=== PATIENT | female | born 2005 | race Caucasian/White ===

== ENCOUNTER 2024-03-08 08:58 | Emergency (ER) | payer BC, SELFPAY ==
[2024-03-08 08:58] VITALS: BP 116/89; PULSE 122; RESP 17; TEMP 36.2; O2SAT 100; BMI 23.8
[2024-03-08 09:02] VITALS: BP 116/89; PULSE 122; RESP 17; TEMP 36.2; O2SAT 100
--- NOTE | 2024-03-08 09:11 | EDS_ITS ---
HPI HPI - GI History of Present Illness Chief Complaint: Nausea/Vomiting Informant: patient Narrative Narrative: 18-year-old female type I diabetic presents with vomiting, she was around some children who were vomiting and not feeling well recently, states she could have a stomach flu because of that or she could be in DKA. She has been vomiting for 3 to 4 hours now, started at 5 AM. She states she took her insulin pump site off last night before going to bed but forgot to put a new 1 on accidentally. She states that she was going to when she woke up vomiting at 5 AM but was feeling too poorly so then put the new one on around 7 when she woke up later but she has been vomiting uncontrollably since. She denies dyspnea. She states after the vomiting started she had some feeling like she has cramping or twisting in her abdomen but no other severe pains except from discomfort in her low back nonlateralizing. She denies any urinary symptoms, fevers or chills, or diarrhea. [facility] Medical History Type 1 diabetes Home Medications ?Medication ?Instructions ?Recorded ?Last Taken ?Type glucagon 3 mg/actuation nasal mg intranasal 03/08/24 Unknown History spray (Baqsimi) insulin aspart U-100 100 unit/mL 200 unit subcut Q3D 03/08/24 Unknown History subcutaneous solution (Novolog U-100 Insulin aspart) insulin pump cart,auto,BT,G6/7 03/08/24 Unknown History (Omnipod 5 G6-G7 Pods (Gen 5) subcutaneous cartridge) insulin syringe-needle U-100 0.3 03/08/24 Unknown History mL 31 gauge x 5/16 ondansetron 8 mg disintegrating 8 mg PO Q8H PRN nausea and 03/08/24 Unknown Rx tablet vomiting #20 tabs promethazine 12.5 mg tablet 12.5 - 25 mg PO Q6H PRN PRN 03/08/24 Unknown History nausea/vomiting Allergy/AdvReac Type Severity Reaction Status Date / Time No Known Allergies Allergy Verified 03/08/24 09:02 Social History Smoking Status: Never smoker ROS ROS ED Constitutional Constitutional ED: Reports malaise; Denies chills or fever(s) Eyes Eyes: Denies change in vision or diplopia ENT ENT ED: Denies rhinorrhea or sore throat Cardiovascular Cardiovascular: Denies chest pain or palpitations Respiratory/Chest Respiratory/Chest: Denies cough or dyspnea Gastrointestinal Gastrointestinal: Reports abdominal pain, nausea and vomiting; Denies diarrhea Genitourinary Genitourinary ED: Denies dysuria or hematuria Musculoskeletal Musculoskeletal: Reports back pain; Denies neck pain Integumentary Denies abscess or rash Neurologic Neurologic: Denies headache(s), paresthesias or weakness Psychiatric Psychiatric: Reports anxiety; Denies suicidal thoughts EXAM Physical Exam Const Vital Signs: 03/08/24 08:58 03/08/24 09:02 03/08/24 10:02 Temperature 97.2 F L 97.2 F L 97.2 F L Temperature Source Oral Oral Oral Pulse Rate 122 H 122 H 99 Respiratory Rate 17 17 16 Blood Pressure 116/89 H 116/89 H 120/67 Blood Pressure Mean 98 98 84 Pulse Ox 100 100 99 Oxygen Delivery Method Room Air Room Air Room Air 03/08/24 11:00 03/08/24 11:16 Temperature 97.2 F L 97.2 F L Temperature Source Oral Pulse Rate 103 H 103 H Respiratory Rate 16 16 Blood Pressure 112/60 112/60 Blood Pressure Mean 77 77 Pulse Ox 99 99 Oxygen Delivery Method Room Air Positive well nourished and well developed General Appearance ED: well developed and NAD HEENT Reports moist mucous membranes normocephalic and atraumatic Eyes PERRL and EOMs intact bilaterally Neck full ROM and supple Resp normal respiratory effort and clear to auscultation bilaterally Cardio regular rate, regular rhythm and no murmurs Rate: tachycardic GI non-tender and non-distended GI Narrative: Subjectively tender epigastrium, objectively benign abdomen Auscultation: normoactive bowel sounds Palpation: soft Back/Spine no CVA tenderness General Back: other FROM Extremity normal to inspection General Extremety ED: Negative for edema, pulses abnormal or tenderness General Extremity: Negative for edema or pulses abnormal Neuro oriented x3, CN's II-XII intact bilaterally and no sensory deficits noted Sensorium / Orientation: awake and alert Motor Exam: strength 5/5 throughout Psych Mood & Affect: anxious Skin no rashes or lesions noted and no wounds MDM MDM MDM Narrative Medical decision making narrative: Patient was given Zofran and on reevaluation she feels much better and is tolerating oral fluids without difficulty. Her workup shows a leukocytosis, decreased bicarb, borderline anion gap, hyperglycemia, ketones in the serum and urine, but venous pH that is normal at 7.41. I advised her that this is consistent with early/mild DKA probable. I recommended some IV insulin on top of her pump, and repeating a BMP a little later to verify that everything normalized. She really states that she does not want to do that, we rechecked her sugar and it was 327, she states her insulin pump is working, and she would prefer to go home with a prescription for Zofran and come back if everything gets worse. She understands the risks and is comfortable with that plan as a my. Lab Data Attestation: I reviewed the patient's lab results. Labs: Laboratory Results - last 24 hr 03/08/24 03/08/24 03/08/24 09:06 09:15 09:30 WBC 16.2 H RBC 4.97 Hgb 15.0 Hct 45.5 MCV 91.5 MCH 30.2 MCHC 33.0 RDW Std Deviation 42.7 RDW Coeff of [place] 12.9 Plt Count 307 MPV 11.4 Immature Gran % (Auto) 0.400 Neut % (Auto) 87.6 H Lymph % (Auto) 8.6 L [place] % (Auto) 2.8 Eos % (Auto) 0.1 Baso % (Auto) 0.5 Absolute Neuts (auto) 14.2 H Absolute Lymphs (auto) 1.39 Nucleated RBC % 0 Sodium 135 L Potassium 4.4 Chloride 102 Carbon Dioxide 18.0 L Anion Gap 15 BUN 15 Creatinine 1.04 H Estim Creat Clear Calc 65.65 Est GFR (MDRD) Af Amer 87 Est GFR (MDRD) Non-Af 72 BUN/Creatinine Ratio 14.4 Glucose 455 H* Calcium 10.0 Urine Color Yellow Urine Clarity Sl. Cloudy Urine pH 6.0 Ur Specific [place] 1.015 Urine Protein Negative Urine Glucose (UA) 1000 H Urine Ketones 150 A* Urine Occult Blood Negative Urine Nitrite Negative Urine Bilirubin Negative Urine Urobilinogen Normal Ur Leukocyte Esterase Negative Urine RBC 0 SEEN Urine WBC 0-5 SEEN Ur Squamous Epith Cells 0-5 SEEN Urine Bacteria 0 SEEN Urine Mucus 0 SEEN Urine Test Negative [place]et[place] Level SMALL H POC Glucose 418 H 03/08/24 03/08/24 09:31 10:55 WBC RBC Hgb Hct MCV MCH MCHC RDW Std Deviation RDW Coeff of [place] Plt Count MPV Immature Gran % (Auto) Neut % (Auto) Lymph % (Auto) [place] % (Auto) Eos % (Auto) Baso % (Auto) Absolute Neuts (auto) Absolute Lymphs (auto) Nucleated RBC % Sodium Potassium Chloride Carbon Dioxide Anion Gap BUN Creatinine Estim Creat Clear Calc Est GFR (MDRD) Af Amer Est GFR (MDRD) Non-Af BUN/Creatinine Ratio Glucose Calcium Urine Color Urine Clarity Urine pH Ur Specific [place] Urine Protein Urine Glucose (UA) Urine Ketones Urine Occult Blood Urine Nitrite Urine Bilirubin Urine Urobilinogen Ur Leukocyte Esterase Urine RBC Urine WBC Ur Squamous Epith Cells Urine Bacteria Urine Mucus Urine Test [place]etone Level POC Glucose 412 H 327 H ABG Data ABG results: ABG 03/08/24 09:38 Specimen Type CATARINO Sample Site Not entered VBG pH 7.41 VBG pO2 77 H VBG HCO3 16 L VBG Total CO2 17 L VBG O2 Sat (Calc) 96 H VBG Base Excess -9 L POC Mix VBG pCO2 Pt Tmp 25.5 L O2 Delivery Device Room Air Discharge Plan Triage Chief Complaint: Nausea/Vomiting ED Provider: Tommy Castro Dx/Rx/DC Orders Clinical Impression: Acute gastritis without bleeding, Hyperglycemia due to type 1 diabetes mellitus Instructions: ED Diabetic Hyperglycemia Prescriptions: New ondansetron 8 mg tablet,disintegrating 8 mg PO Q8H PRN (Reason: nausea and vomiting) Qty: 20 0RF No Action promethazine 12.5 mg tablet 12.5 - 25 mg PO Q6H PRN PRN (Reason: nausea/vomiting) insulin aspart U-100 [Novolog U-100 Insulin aspart] 100 unit/mL solution 200 unit subcut Q3D (DME) insulin syringe-needle U-100 0.3 mL 31 gauge x 5/16 syringe 1 syringe MISCELLANEOUS 4X/DAY Baqsimi 3 mg/actuation spray,non-aerosol INTRANASAL Patient Comments: APPLY INTO THE NOSE FOR SEVERE HYPOGLYCEMIA. MAY REPEAT AFTER 15 MINUTES FOR UP TO A MAXIMUM OF 2 DOSES (DME) Omnipod 5 G6-G7 Pods (Gen 5) Cartridge subcut QODAY Primary Care Provider: Care Physician,No Primary Referrals: Doctor,Your [Non-Staff] - 3-5 Days if not improving Print Language: Faroese Disposition Disposition: Home, Self Care
[2024-03-08 09:25] LABS: Bedside Glucose 418 mg/dL (74-106)
[2024-03-08] MEDS: Ondansetron 4 MG/2 ML Vial IV (09:26)
[2024-03-08 09:31] LABS: Absolute Lymphocyte Count 1.39 X10^3/uL (0.83-4.51); Absolute Neutrophil Count 14.2 X10^3/uL (2.0-7.7); Basophil# 0.08 X10^3/uL; Basophil% 0.5 % (0-1); Eosinophil# 0.01 X10^3/uL; Eosinophils% 0.1 % (0-5); Hematocrit 45.5 % (37-47); Lymphocyte # 1.39 X10^3/ul (0.83-4.51); Lymphocyte % 8.6 % (19-41); Mean Corpuscular Hgb 30.2 pg (27.0-32.0); Mean Corpuscular Volume 91.5 fL (81-99); Mean Platelet Vol. 11.4 fl (6.2-12.0); Monocyte# 0.46 X10^3/uL; Monocyte% 2.8 % (0-10); NRBC Flagged by Analyzer 0 % (0-5); Neutrophil # 14.21 X10^3/uL (2.7-7.7); Neutrophil % 87.6 % (47-70); Platelet Count 307 K/mm3 (150-450); RBC Distribution Width CV 12.9 % (11.6-14.6); RBC Distribution Width SD 42.7 fl (35.1-43.9); Red Blood Count 4.97 M/mm3 (4.2-5.4); White Blood Count 16.2 K/mm3 (4.4-11.0)
[2024-03-08 09:34] LABS: Bacteria 0 SEEN /hpf (None Seen); Mucous, Urine 0 SEEN /hpf (<or=2+); Red Blood Cells-Urine 0 SEEN /hpf (0-5)
[2024-03-08 09:42] LABS: Blood Gas Specimen Type VEN; O2 Delivery Device Room Air; SITE Not entered; VBG BASE EXCESS -9 mmol/L (-1.0-3.5); VBG Bicarbonate 16 mmol/L (22-26); VBG PO2 77 mmHg (25-40); VBG SO2 96 % (50-70); VBG TCO2 17 mmol/L (23-33); VBG pCO2 25.5 mmHg (41-51); VBG pH 7.41 (7.32-7.42)
[2024-03-08 09:46] LABS: Color, Urine Yellow (Yellow); Glucose, Dipstick 1000 mg/dl (Normal); Leukocyte Esterase-Dipstick Negative /ul (Negative); Nitrite-Dipstick Negative (Negative); Occult Blood-Urine Negative /ul (Negative); Protein-Dipstick Negative (Negative); Specific Gravity, Urine 1.015 (1.002-1.030); Urine Bilirubin Dipstick Negative (Negative); Urine Clarity Sl. Cloudy (Clear); Urine Urobilinogen Normal (Normal)
[2024-03-08 09:49] LABS: Anion Gap 15 (5-15); BUN 15 mg/dL (7-18); BUN/Creat Ratio 14.4 RATIO (10-20); Chloride 102 mmol/L (98-107); Creatinine, Serum 1.04 mg/dL (0.55-1.02); EST Glomerular Filtration Rate 72 mL/min (>60); Est Glom Filt Rate - Afr Amer 87 mL/min (>60); Estimated Creatinine Clearance 65.65 ml/min; Glucose 455 mg/dL (74-106); Potassium 4.4 mmol/L (3.5-5.1); Sodium Level 135 mmol/L (136-145)
[2024-03-08 09:49] LABS: Bedside Glucose 412 mg/dL (74-106)
[2024-03-08 10:02] VITALS: BP 120/67; PULSE 99; RESP 16; TEMP 36.2; O2SAT 99
[2024-03-08 10:03] LABS: Ketone-Dipstick 150 mg/dl (Negative)
[2024-03-08 10:05] LABS: Internal QC Validated? YES +Cl - CLEAR BKGD; Pregnancy, Urine Negative Negative; Squamous Epithelial Cells - UA 0-5 SEEN /hpf (5-10); White Blood Cells 0-5 SEEN /hpf (0-5)
[2024-03-08 11:00] VITALS: BP 112/60; PULSE 103; RESP 16; TEMP 36.2; O2SAT 99
[2024-03-08 11:14] LABS: Bedside Glucose 327 mg/dL (74-106)
[2024-03-08 11:16] VITALS: BP 112/60; PULSE 103; RESP 16; TEMP 36.2; O2SAT 99
[2024-03-08 11:34] VITALS: BP 122/64; PULSE 99; RESP 18; O2SAT 100
== END 2024-03-08 11:34 | disposition home or self-care (01) ==
PROVIDERS: Emergency Provider Emergency Medicine; Visit Provider Emergency Medicine
DX: K29.00 Acute gastritis without bleeding (principal); E10.65 Type 1 diabetes mellitus with hyperglycemia; T38.3X6A Underdosing of insulin and oral hypoglycemic [antidiabetic] drugs, initial encounter; Z96.41 Presence of insulin pump (external) (internal)
CPT/HCPCS: 80048; 81001; 81025; 82009; 82803; 82962; 85025; 96374; 99283; A4216; J2405